=== PATIENT | female | born 1980 | race Caucasian/White ===

== ENCOUNTER 2020-09-29 10:30 | Inpatient (IN) | payer OTHER ==
[2020-09-29 12:25] VITALS: BMI 31.4
[2020-09-29] MEDS ORDERED: OXYTOCIN 20 UNITS in 0.9% NS 40 UNIT/2,000 ML INFUS.BAG IV ONE (12:57)
[2020-09-29] MEDS ORDERED: ceFAZolin SODIUM 1 GM VIAL ONE (12:59)
[2020-09-29] MEDS ORDERED: DEXAMETHASONE SOD PHOSPHATE 4 MG/1 ML VIAL ONE (12:59)
[2020-09-29] MEDS ORDERED: ONDANSETRON 4 MG/2 ML VIAL ONE (12:59)
[2020-09-29] MEDS ORDERED: morphine SULFATE/PF 0.5 MG/ML (2cc Syringe - QUVA) ONE (12:59)
[2020-09-29] MEDS ORDERED: CITRIC ACID/SODIUM CITRATE 30 ML UNIT-DOSE CUP PO ONE (13:09)
[2020-09-29] MEDS ORDERED: ELECTROLYTE-148 SOLN 500 ML IV ONE (13:09)
[2020-09-29] MEDS ORDERED: ELECTROLYTE-148 SOLN 1,000 ML IV SCH (13:15)
[2020-09-29] MEDS ORDERED: OXYTOCIN 10 UNITS/ML VIAL ONE (13:38)
[2020-09-29] MEDS ORDERED: MIDAZOLAM HCL 2 MG/2 ML SINGLE DOSE VIAL ONE (13:42)
[2020-09-29] MEDS ORDERED: KETOROLAC TROMETHAMINE 30 MG/1 ML VIAL ONE (14:24)
[2020-09-29] MEDS ORDERED: oxyCODONE HCL 5 MG TABLET PO PRN (14:49)
[2020-09-29] MEDS ORDERED: METHYLERGONOVINE MALEATE 0.2 MG/1 ML AMP IM PRN (14:49)
[2020-09-29] MEDS ORDERED: IBUPROFEN 800 MG/8 ML IJ IVPB PRN (14:49)
[2020-09-29] MEDS ORDERED: SENNOSIDES/DOCUSATE COMBO (SENNA PLUS) TABLET (UD) PO PRN (14:49)
[2020-09-29] MEDS ORDERED: OXYTOCIN 20 UNITS in 0.9% NS 20 UNIT/1,000 ML INFUS.BAG IV SCH (15:00)
[2020-09-29] MEDS ORDERED: ONDANSETRON 4 MG/2 ML VIAL IVPB PRN (18:40)
[2020-09-30 07:29] LABS: HEMOGLOBIN 11.2 GM/dL (10.7-15.3); LYMPH % 9.2 % (8-40); MCH 31.6 pg (25.7-33.7); MCHC 33.9 g/dl (32.0-36.0); MEAN CELL VOLUME 93.2 fl (80-96); MEAN PLT VOLUME 9.8 fl (7.5-11.1); MONO % 5.7 % (3.8-10.2); NEUT % 85.1 % (42.8-82.8); PLATELET COUNT 150 10^3/uL (134-434); RBC 3.54 M/mm3 (3.60-5.2); RDW 14.1 % (11.6-15.6); WHITE BLOOD COUNT 11.9 K/mm3 (4.0-10.0)
[2020-09-30] MEDS: PRENATAL VITAMINS W/ FOLIC ACID TABLET (FP) PO SCH (10:10)
[2020-09-30] MEDS ORDERED: BISACODYL 10 MG SUPP.RECT RC PRN (14:49)
[2020-09-30] MEDS: oxyCODONE HCL 5 MG TABLET PO PRN ×2 (15:22→20:15)
[2020-09-30] MEDS: SIMETHICONE 80 MG TAB.CHEW (FP) PO PRN ×2 (15:22→20:15)
[2020-09-30] MEDS: IBUPROFEN 600 MG TABLET (FP) PO PRN ×2 (15:23→20:13)
[2020-09-30] MEDS: ACETAMINOPHEN 325 MG TABLET (FP) PO PRN ×2 (15:23→20:14)
[2020-10-01] MEDS: oxyCODONE HCL 5 MG TABLET PO PRN ×4 (00:25→20:18)
[2020-10-01] MEDS: SIMETHICONE 80 MG TAB.CHEW (FP) PO PRN ×4 (00:25→20:17)
[2020-10-01] MEDS: ACETAMINOPHEN 325 MG TABLET (FP) PO PRN ×4 (00:26→20:20)
[2020-10-01] MEDS: IBUPROFEN 600 MG TABLET (FP) PO PRN ×4 (00:30→20:19)
[2020-10-01] MEDS: PRENATAL VITAMINS W/ FOLIC ACID TABLET (FP) PO SCH (10:28)
[2020-10-02] MEDS: ACETAMINOPHEN 325 MG TABLET (FP) PO PRN ×2 (01:50→09:21)
[2020-10-02] MEDS: SIMETHICONE 80 MG TAB.CHEW (FP) PO PRN ×2 (01:50→09:23)
[2020-10-02] MEDS: IBUPROFEN 600 MG TABLET (FP) PO PRN ×2 (01:52→09:22)
[2020-10-02] MEDS: PRENATAL VITAMINS W/ FOLIC ACID TABLET (FP) PO SCH (09:38)
[2020-10-02 11:26] VITALS: BP 132/74; PULSE 72; TEMP 98.6
== END 2020-10-02 10:30 | disposition home or self-care (01) | DRG 540 ==
LOC: JLDR 10:30 → J3W 15:53
PROVIDERS: ADMIT Obstetrics & Gynecology; ATTEND Obstetrics & Gynecology
PROC: 10D00Z1 Extraction of Products of Conception, Low, Open Approach (ICD-10-PCS; principal; 2020-09-29)
DX: O34.211 Maternal care for low transverse scar from previous cesarean delivery (principal); O69.81X0 Labor and delivery complicated by cord around neck, without compression, not applicable or unspecified; Z3A.39 39 weeks gestation of pregnancy; Z37.0 Single live birth
CPT/HCPCS: 36415; 80053; 85025; 85610; 85730; 86850; 86900; 86901; 88307-TC; C9803; U0003; U0005